=== PATIENT | male | born 1985 | race African-American/Black ===

== ENCOUNTER 2018-08-20 17:45 | Emergency (ER) | payer OTHER ==
[~2018-08-20] VITALS: Ht 170.2 cm; Wt 74.8 kg
[2018-08-20 18:35] VITALS: BP 145/72
--- NOTE | 2018-08-20 19:28 | NUR ---
Patient discharged to home in stable condition. Written and verbal after care instructions given. Patient verbalizes understanding of instruction.
== END 2018-08-20 19:29 | disposition home or self-care (01) ==
LOC: ER 17:52
DX: Z48.01 Encounter for change or removal of surgical wound dressing (principal)
CPT/HCPCS: Z7502